=== PATIENT | male | born 1985 | race Two or more races ===

== ENCOUNTER → 2017-05-16 | Emergency (ER) | payer OTHER ==
[~2017-05-16] VITALS: Ht 182.9 cm; Wt 99.8 kg
[~2017-05-16] MED LIST: CHOLESTEROL MEDICATI; CLONAZEPAM0.5 MG PO; MEDROL4 M1 PO; NAPROSYN500 MG PO; NORCO 5-325 TA1 EACH PO; OLANZAPINE10 MG PO
--- NOTE | 2017-05-17 07:00 | EKG ---
[facility] [address] [facility] [place], [place] [address] Signed Sinus tachycardia Otherwise normal ECG No previous ECGs available Confirmed by KAYLA ELLIOTT MD [id number] on 05/17/2017 7:00:22 AM Electronically Signed By: KAYLA ELLIOTT MD 05/17/17 0700 PATIENT NAME: PETAR QUINN Electrocardiogram DATE OF : 81 PHYSICIAN: KAYLA ELLIOTT MD REPORT #: [id number] REPORT IS CONFIDENTIAL AND NOT TO BE RELEASED WITHOUT AUTHORIZATION
== END | disposition home or self-care (01) ==
LOC: ED 18:06
DX: F15.90 Other stimulant use, unspecified, uncomplicated (principal); F43.10 Post-traumatic stress disorder, unspecified; Z87.891 Personal history of nicotine dependence
CPT/HCPCS: 70450; 71010; 80053; 81001; 84484; 85025; 93005; 93010; 96361; 96374; 99284; G0480; J2405; J7030